=== PATIENT | female | born 1970 | race Hispanic/Latino ===

== ENCOUNTER 2016-10-09 09:23 | Emergency (ER) | payer BC ==
--- NOTE | 2016-10-09 10:24 | ED PDOC ---
Lower Extremity Pain/Injury Time Seen by Provider: 10/09/16 09:32 Chief Complaint (Nursing): Lower Extremity Problem/Injury Chief Complaint (Provider): left ankle pain History Per: Patient, EMS History/Exam Limitations: no limitations Onset/Duration Of Symptoms: Hrs (<1) Current Symptoms Are (Timing): Still Present Severity: Severe Additional Complaint(s): 46yo female states was walking and slipped on ice, injuring left ankle/lower leg. Denies head or neck trauma. Denies upper extremity, chest pain or back pain. Only c/o pain to left ankle with limited active ROM and tingling to foot. Partially immobilized ankle by EMS. Placed onto stretcher, deformity noted, ortho workup initiated with immediate ordering of analgesia for relief of pain. Past Medical History Reviewed: Historical Data, Nursing Documentation, Vital Signs Vital Signs: Last Vital Signs Temp 96.8 F L 10/09/16 09:25 Pulse 76 10/09/16 09:25 Resp 18 10/09/16 09:25 BP 143/89 10/09/16 09:25 Pulse Ox 99 10/09/16 09:25 - Medical History PMH: Asthma Other PMH: breast cancer - Surgical History Other surgeries: mastectomy - Family History Family History: States: Unknown Family Hx - Living Arrangements Living Arrangements: With Family - Social History Drugs: Denies - Home Medications Home Medications: Ambulatory Orders Medication Instructions Recorded Albuterol Sulfate [Proair Hfa] 2 puff IH Q6H PRN 01/23/16 Fluticasone/Salmeterol 250/50 1 puff IH Q12H 10/09/16 [Advair Diskus 250/50] Naproxen [Naprosyn] 500 mg PO BID PRN #14 tablet 10/09/16 oxyCODONE/Acetaminophen [Percocet 1 ea PO Q6 PRN #12 tab 10/09/16 5/325 mg Tab] traMADol [Ultram] 50 mg PO TID PRN #12 tab 10/09/16 - Allergies Allergies/Adverse Reactions: Allergies Allergy/AdvReac Type Severity Reaction Status Date / Time cephalexin monohydrate Allergy RASH Verified 10/09/16 09:29 [From Keflex] codeine Allergy RASH Verified 10/09/16 09:29 Penicillins Allergy RASH Verified 10/09/16 09:29 sulfamethoxazole Allergy SYNCOPE Verified 10/09/16 09:29 [From Bactrim] trimethoprim [From Bactrim] Allergy SYNCOPE Verified 10/09/16 09:29 Review of Systems Constitutional: Negative for: Fever, Chills Cardiovascular: Negative for: Chest Pain, Palpitations Respiratory: Negative for: Cough, Shortness of Breath Gastrointestinal: Negative for: Nausea, Vomiting Genitourinary Female: Negative for: Dysuria, Frequency Musculoskeletal: Positive for: Leg Pain, Foot Pain. Negative for: Neck Pain, Shoulder Pain, Arm Pain, Back Pain, Hand Pain Skin: Negative for: Rash, Lesions, Jaundice Neurological: Negative for: Weakness, Numbness Physical Exam - Reviewed Nursing Documentation Reviewed: Yes Vital Signs Reviewed: Yes - Physical Exam Appears: Positive for: Non-toxic, Uncomfortable (painful distress) Head Exam: Positive for: ATRAUMATIC, NORMAL INSPECTION, NORMOCEPHALIC Skin: Positive for: Normal Color, Warm, DRY Eye Exam: Positive for: Normal appearance, EOMI, PERRL. Negative for: Periorbital swelling ENT: Positive for: Normal ENT Inspection Neck: Positive for: Normal, Painless ROM Cardiovascular/Chest: Positive for: Regular Rate, Rhythm Respiratory: Positive for: Normal Breath Sounds. Negative for: Respiratory Distress Gastrointestinal/Abdominal: Positive for: Normal Exam, Bowel Sounds, Soft Back: Positive for: Normal Inspection Extremity: Positive for: Swelling (L ankle +deformity and tenderness, edema, loss ROM active or passive, normal knee no femur/knee or prox fib tenderness), Other (neg hip or right leg tenderness) Neurologic/Psych: Positive for: Alert, Oriented - Laboratory Results Result Diagrams: 10/09/16 10:20 10/09/16 10:20 - ECG ECG: Positive for: Interpreted By Me ECG Rhythm: Positive for: Sinus Rhythm Interpretation Of Abn EKG: performed pre-sedation Rate: 77 O2 Sat by Pulse Oximetry: 99 Pulse Ox Interpretation: Normal Medical Decision Making Medical Decision Making: "Code ortho" initiated. Ice applied to ankle w stabilization and immobilization. XRays ordered. Basic labwork initiated. NPO. 1000a XRays reveal trimal fracture with dislocation on my initial review. Podiatry consulted. Labs unremarkable States had normal CXR recently via PMD Procedure note: Reduction and procedural sedation Indication: tri-mal fx with fib spiral fracture and displacement Consent obtained for closed reduction under procedural sedation. Risks benefits alternatives explained. Time out performed. ID, site, allergy and NPO confirmed. Using ketamine and propofol, excellent sedation obtained- SPO2 >96% throughout procedure, ETCO2 32-[address] Bennett and podiatry team provided procedure, traction with real time XRay, improved alignment of fracture. Cast applied by podiatry team, toes remain pink and mobile. Tolerated well. MD in room total 35minutes. Monitored ~90min post procedure with +urination, tolerating PO. Pain medicine regimen explained (pt has taken percocet in past without allergy as recently as last year), elevate, hold NSAIDS 48hrs prior to surgery, now scheduled for Friday. Followup Dr Shepherd. Instructions for post deep sedation given. Disposition - Clinical Impression Clinical Impression: Ankle fracture - Patient ED Disposition Is Patient to be Admitted: No Counseled Patient/Family Regarding: Studies Performed, Diagnosis, Need For Followup, Rx Given - Disposition Referrals: Podiatry Clinic [Outside] Disposition: Routine/Home Disposition Time: 15:30 Condition: STABLE Additional Instructions: Non-weight bearing to left ankle/foot. Use crutches. You will need surgery for this injury. Call Dr Shepherd tomorrow for appointment soon to arrange. Take pain medication as directed. Recommend liquid diet tonight after sedation. Have family member stay with you tonight. Prescriptions: Naproxen [Naprosyn] 500 mg PO BID PRN #14 tablet PRN Reason: Pain, Moderate (4-7) oxyCODONE/Acetaminophen [Percocet 5/325 mg Tab] 1 ea PO Q6 PRN #12 tab PRN Reason: Pain, Severe (8-10) traMADol [Ultram] 50 mg PO TID PRN #12 tab PRN Reason: Pain, Moderate (4-7) Instructions: Ankle Fracture (ED), Cast Care (ED), Crutch Instructions (ED), Deep Sedation (ED), RICE Therapy (ED), Non Weight Bearing Activity (ED) - POA Present On Arrival: Falls Or Trauma
[2016-10-09 10:38] LABS: BASO # 0.1 K/uL (0.0-0.2); BASO % 0.8 % (0.0-2.0); EOS # 0.8 K/uL (0.0-0.7); EOS % 5.3 % (0.0-4.0); HEMATOCRIT 38.3 % (34.0-47.0); LYMPH # 2.8 K/uL (1.0-4.3); LYMPH % 19.6 % (20.0-40.0); MEAN CELL VOLUME 97.9 fl (81.0-99.0); MEAN CORPUSCULAR HGB CONC 33.7 g/dL (33.0-37.0); MEAN PLATELET VOLUME 8.6 fl (7.2-11.7); MONO # 0.8 K/uL (0.0-0.8); MONO % 5.3 % (0.0-10.0); NEUT # 9.9 K/uL (1.8-7.0); NRBC % 0.1 % (0.0-0.0); RED CELL DISTRIBUTION WIDTH 11.8 % (11.5-14.5); WHITE BLOOD COUNT 14.4 K/uL (4.8-10.8)
[2016-10-09 10:39] LABS: ALB/GLOB RATIO 1.4 (1.0-2.1); ALKALINE PHOSPHATASE 54 U/L (38-126); ALT/SGPT 21 U/L (9-52); AST/SGOT 17 U/L (14-36); BILIRUBIN,TOTAL 0.6 mg/dl (0.2-1.3); BLOOD UREA NITROGEN 11 mg/dl (7-17); CALCIUM 9.2 mg/dL (8.4-10.2); CARBON DIOXIDE 19 mmol/L (22-30); CHLORIDE 106 mmol/L (98-107); GFR AFRICAN-AMERICAN > 60; GLUCOSE,RANDOM 155 mg/dL (65-105); POTASSIUM 3.8 MMOL/L (3.6-5.0); SODIUM 141 mmol/l (132-148); TOTAL PROTEIN 7.3 G/DL (6.3-8.2)
--- NOTE | 2016-10-09 10:55 | RAD ---
PROCEDURE: Left Foot Radiographs. HISTORY: fall L foot ankle trauma COMPARISON: None. FINDINGS: BONES: No fracture identified in the foot. Medial malleolar and distal fibular diaphyseal fractures are noted. JOINTS: Normal. SOFT TISSUES: Normal. OTHER FINDINGS: None. IMPRESSION: Unremarkable examination of the left foot. Multiple fractures of the left ankle are noted. Please see report of left ankle radiographs.
[2016-10-09] MEDS ORDERED: HYDROmorphone 0.5 mg/0.5 ml ISec ONE (10:56)
--- NOTE | 2016-10-09 10:56 | RAD ---
PROCEDURE: Left Ankle Radiographs. HISTORY: fall L foot ankle trauma COMPARISON: None FINDINGS: BONES: Displaced posterior malleolar fracture. Displaced medial malleolar fracture. Displaced oblique distal fibular fracture above the level of the plafond. Talar dome appears smooth. JOINTS: Widened ankle mortise. SOFT TISSUES: Only mild soft tissue swelling noted. OTHER FINDINGS: None. IMPRESSION: Fracture medial and posterior malleoli with displacement. Oblique displaced distal fibular fracture. Widened ankle mortise.
--- NOTE | 2016-10-09 10:57 | RAD ---
PROCEDURE: Radiographs of the left tibia and fibula. HISTORY: fall L foot ankle trauma COMPARISON: None available. TECHNIQUE: Frontal and lateral views obtained. FINDINGS: BONES: Oblique displaced distal fibular fracture. Medial and posterior malleolar fractures as reported under radiography of left ankle. No additional fracture identified. JOINT SPACES: Unremarkable. OTHER FINDINGS: None. IMPRESSION: Oblique mildly displaced distal fibular fracture. Medial and posterior malleolar fractures. Mildly displaced.
[2016-10-09] MEDS ORDERED: HYDROmorphone 0.5 mg/0.5 ml ISec IVP STA (11:06)
--- NOTE | 2016-10-09 13:01 | CP.PCM.CON ---
History of Present Illness - History of Present Illness History of Present Illness: PODIATRY CONSULT NOTE CC: Left ankle trauma HPI: 46 year old female with left ankle pain and swelling beginning 1 hour ago secondary to a fall on ice today. Pt reports immediately after she was unable to bear weight on the right side. Pt can to the ED department immediately to seek medical treatment. Pt reports pain is a throbbing, localized 7/10 to the affected ankle. Pain is controlled at this time due to NSAID being administered upon arrival to ED. PMH: Asthma PSH: Rigth side mastectomy, Tonsillectomy, Cesarian . ALL: Penicillin, Keflex, Codeine, Bactrim, Sulfa drugs, Morphine Family Hx: Social Hx: Employed, homed. Admits to smoking 3/4 of a pack daily with a 20 year smoking history. Denies alcohol abuse, and illicit drug use. Meds: Advir, Albuterol ROS: Reviewed and all systems negative outside HPI. Review of Systems - Review of Systems All systems: reviewed and no additional remarkable complaints except Past Patient History - Past Social History Drugs: Denies - PULMONARY Hx Asthma: Yes - PSYCHIATRIC Hx Substance Use: No - SURGICAL HISTORY Hx Surgeries: Yes Hx Mastectomy: Yes (RIGHT) - ANESTHESIA Hx Anesthesia: Yes Hx Anesthesia Reactions: No Meds Home Medications: Home Medication List Medication Instructions Recorded Confirmed Type Naproxen [Naprosyn] 500 mg PO BID PRN #14 tablet 10/09/16 Rx oxyCODONE/Acetaminophen [Percocet 1 ea PO Q6 PRN #12 tab 10/09/16 Rx 5/325 mg Tab] traMADol [Ultram] 50 mg PO TID PRN #12 tab 10/09/16 Rx Allergies/Adverse Reactions: Allergies Allergy/AdvReac Type Severity Reaction Status Date / Time cephalexin monohydrate Allergy RASH Verified 10/09/16 09:29 [From Keflex] codeine Allergy RASH Verified 10/09/16 09:29 Penicillins Allergy RASH Verified 10/09/16 09:29 sulfamethoxazole Allergy SYNCOPE Verified 10/09/16 09:29 [From Bactrim] trimethoprim [From Bactrim] Allergy SYNCOPE Verified 10/09/16 09:29 Physical Exam - Constitutional Appears: Well, Non-toxic, No Acute Distress - Extremities Exam Additional comments: Left lower extremity focused. VASC: DP and PT pulses fully palpable, graded 1/4, secondary to non-pitting edema noted extending from supra-ankle level distally into forefoot. No callor noted. Pedal hair growth noted at level of digits. DERM: No ecchymosis, vesicle, open wounds, or macerations noted. Nails are normotrophic and well cared for. NERUO: Protective sensation is grossly intact. MUSCK: Lateral and medial malleoli are tender to palpation. Mild dislocation of left anklel grossly appreciated visually, dislocated laterally and posteriorly. ROM limited due to guarding. No gross dislocation of deformity noted. - Neurological Exam Neurological exam: Alert, Oriented x3 - Psychiatric Exam Psychiatric exam: Anxious, Normal Affect - Skin Skin Exam: Intact, Normal Color, Warm Results - Vital Signs Recent Vital Signs: Last Vital Signs Temp 96.8 F L 10/09/16 09:25 Pulse 76 10/09/16 09:25 Resp 18 10/09/16 09:25 BP 143/89 10/09/16 09:25 Pulse Ox 99 10/09/16 10:31 - Labs Result Diagrams: 10/09/16 10:20 10/09/16 10:20 Labs: Laboratory Results - last 24 hr 10/09/16 10:20 WBC 14.4 H RBC 3.91 Hgb 12.9 Hct 38.3 MCV 97.9 D MCH 33.0 H MCHC 33.7 RDW 11.8 Plt Count 289 MPV 8.6 Neut % (Auto) 69.0 Lymph % (Auto) 19.6 L [place] % (Auto) 5.3 Eos % (Auto) 5.3 H Baso % (Auto) 0.8 Neut # 9.9 H Lymph # 2.8 [place] # 0.8 Eos # 0.8 H Baso # 0.1 Sodium 141 Potassium 3.8 Chloride 106 Carbon Dioxide 19 L Anion Gap 20 BUN 11 Creatinine 0.5 L Est GFR ( Amer) > 60 Est GFR (Non-Af Amer) > 60 Random Glucose 155 H Calcium 9.2 Total Bilirubin 0.6 AST 17 ALT 21 Alkaline Phosphatase 54 Total Protein 7.3 Albumin 4.2 Globulin 3.1 Albumin/Globulin Ratio 1.4 Assessment & Plan - Assessment and Plan (Free Text) Assessment: 46 year old female with 1) Left ankle closed, displaced Tri-malleolar fracture, SER-4 type, secondary to acute fall trauma. . Plan: Patient evaluated and treated. Chart labs and vitals reviewed. Discussed with attending Dr. Shepherd. Discussed with patient etiology and treatment prognosis of conservative and surgical treatment options. Due to patient's extensive fracture patterns surgical intervention recommended, with closed reduction to be performed in the ER. Pt is aware of risks, benefits, and complications. -Consented patient for closed reduction under sedation. Performed closed reduction, adequate reduction of dislocations, re-approximation of length of limb, and bone apposition. Pt tolerated procedure well. Bi-valved cast used for eternal fixation. -Pt to be non-weightbearing w/ use of crutches. -Pt to be scheduled for surgery within 1 week. -Pt to follow-up in office w / Dr. Shepherd. - Date & Time Date: 10/09/16 Time: 01:00
[2016-10-09] MEDS ORDERED: Ketamine 50 mg/ml Inj (10 ml) IV ONE (13:10)
[2016-10-09] MEDS ORDERED: Midazolam 2 MG/2 ML VIAL IV ONE (13:11)
[2016-10-09] MEDS ORDERED: Propofol 10 mg/ml Inj (20 ML) IV ONE ×2 (13:48→14:15)
--- NOTE | 2016-10-09 13:58 | RAD ---
PROCEDURE: Left Ankle Radiographs. HISTORY: closed reduction assesment COMPARISON: None FINDINGS: BONES: Status post close reduction left ankle fracture. The medial malleolus and distal fibular fragment both appear in closer anatomic alignment. . The posterior malleolar fragment appears in anatomic alignment. There is likely greater comminution of the distal tibia than is clearly evident on plain radiography. JOINTS: The tibiotalar articulation appears grossly intact. The talar dome is smooth. SOFT TISSUES: Circumferential soft tissue swelling. OTHER FINDINGS: None. IMPRESSION: Closedreduction oblique distal fibular diaphysis fracture, medial malleolar and posterior malleolar fractures. There is still some displacement of the medial malleolar fragment. There is likely greater comminution of the distal tibia than is evident on plain radiography.
[2016-10-09 14:29] VITALS: RESP 20
--- NOTE | 2016-10-09 15:28 | RAD ---
Left ankle radiographs Comparison: Left ankle radiographs performed earlier the same day. Impression: Status post left ankle close reduction Findings: Images are obtained through a cast which obscures osseous detail. Trimalleolar fracture deformity is re-identified in anatomic alignment, improved since prior study. Soft tissue swelling. Impression: Interval cast. Trimalleolar fracture deformity appears in improved anatomic alignment since prior examination.
[2016-10-09 16:04] VITALS: TEMP 98.6
[2016-10-09 16:06] VITALS: BP 130/70
[2016-10-09 16:10] LABS: PARTIAL THROMBOPLASTIN TIME 24.5 SECONDS (23.3-32.5)
[2016-10-09 18:56] VITALS: O2SAT 99
[2016-10-09 19:00] VITALS: PULSE 77
--- NOTE | 2016-10-10 19:01 | CARD ---
APPROVED REPORT EKG Measurement Heart [id number] ID [id number] <Conclusion> Normal sinus rhythm Possible Left atrial enlargement Borderline ECG
== END 2016-10-09 16:06 | disposition home or self-care (01) ==
LOC: H.ER 09:23
DX: S82.892A Other fracture of left lower leg, initial encounter for closed fracture (principal); W00.0XXA Fall on same level due to ice and snow, initial encounter; Y93.9 Activity, unspecified
CPT/HCPCS: 73590; 73600; 73610; 73630; 80053; 84703; 85025; 85610; 85730; 93005; 96374; 96375; 99283; J1170; J1885; J2250; J2405; J2704

== ENCOUNTER 2017-09-14 20:33 | Emergency (ER) | payer BC ==
[2017-09-14 20:45] VITALS: TEMP 98.3
[2017-09-14] MEDS ORDERED: Albuterol-Ipratrop 3 mg / 0.5 (3 ml) UD INH STA (21:53)
--- NOTE | 2017-09-14 22:07 | ED PDOC ---
HPI: SOB/CHF/COPD Time Seen by Provider: 09/14/17 21:32 Chief Complaint (Nursing): Shortness Of Breath Additional Complaint(s): 47 yo female pmhx asthma brought in by EMS to [facility] ED w/ c/o wheezing and chest tightness since this AM. Pt reports she has URI symptoms ( cough and nasal congestion) for 1.5 weeks. Pt was seen by her PCP/Assistant Clinical Director Dr. Villa on 09/11/17, was given prednisone taper and had negative CXR in the office. Pt reports she took prednisone 40 mg today at 5:45 pm ( first dose) and took 3 nebulizer treatment since this morning. States her chest tightness and shortness of breath were not improving so see came to ED. Denies chest pain, dizziness, fever, chills, GI or symptoms. Denies any hx hospitalization or intubation due to asthma but had ED visit for asthma in the past. Quit smoking 5 yrs ago( smoked 1/2 PPD X 15 yrs). PMD/Assistant Clinical Director: Dr. Villa Past Medical History Vital Signs: Last Vital Signs Temp 98.3 F 09/14/17 20:45 Pulse 98 H 09/14/17 23:24 Resp 18 09/14/17 23:24 BP 119/69 09/14/17 23:24 Pulse Ox 95 09/14/17 23:24 - Medical History PMH: Asthma - Surgical History Other surgeries: Ankle surgery - Family History Family History: States: No Known Family Hx - Social History Ex-Smoker (has not smoked in the last 12 months): Yes Alcohol: None Drugs: Denies - Home Medications Home Medications: Ambulatory Orders Medication Instructions Recorded Albuterol Sulfate [Proair Hfa] 2 puff IH Q6H PRN 01/23/16 Fluticasone/Salmeterol 250/50 1 puff IH Q12H 10/09/16 [Advair Diskus 250/50] Naproxen [Naprosyn] 500 mg PO BID PRN #14 tablet 10/09/16 oxyCODONE/Acetaminophen [Percocet 1 ea PO Q6 PRN #12 tab 10/09/16 5/325 mg Tab] traMADol [Ultram] 50 mg PO TID PRN #12 tab 10/09/16 - Allergies Allergies/Adverse Reactions: Allergies Allergy/AdvReac Type Severity Reaction Status Date / Time cephalexin monohydrate Allergy RASH Verified 10/09/16 09:29 [From Keflex] codeine Allergy RASH Verified 10/09/16 09:29 Penicillins Allergy RASH Verified 10/09/16 09:29 sulfamethoxazole Allergy SYNCOPE Verified 10/09/16 09:29 [From Bactrim] trimethoprim [From Bactrim] Allergy SYNCOPE Verified 10/09/16 09:29 Review of Systems Constitutional: Negative for: Fever, Chills ENT: Negative for: Ear Pain, Throat Pain Cardiovascular: Negative for: Chest Pain, Palpitations Respiratory: Positive for: Cough, Shortness of Breath, Wheezing Gastrointestinal: Negative for: Nausea, Vomiting, Abdominal Pain Genitourinary Female: Negative for: Dysuria Skin: Negative for: Rash Neurological: Negative for: Headache, Dizziness Physical Exam - Physical Exam Appears: Positive for: Non-toxic, In Acute Distress (in mild respiratory distress but able to talk in complete sentences. ) Head Exam: Positive for: ATRAUMATIC, NORMOCEPHALIC Skin: Positive for: Normal Color. Negative for: Diaphoresis ENT: Positive for: Normal ENT Inspection Neck: Positive for: Normal Cardiovascular/Chest: Positive for: Tachycardia (slight tachycardia w/ regular rhythm. ) Respiratory: Positive for: Wheezing (diffuse wheezing B/L lung moore prominent in expiratory phase. ). Negative for: Accessory Muscle Use, Crackles, Rales Gastrointestinal/Abdominal: Positive for: Bowel Sounds, Soft. Negative for: Tenderness Neurologic/Psych: Positive for: Alert, Oriented - Laboratory Results Result Diagrams: 09/14/17 22:23 09/14/17 22:23 - ECG O2 Sat by Pulse Oximetry: 96 - Progress ED Course And Treament: Assessment: 47 yo female pmhx asthma brought in by EMS to [facility] ED with symptoms of asthma exacerbation. Plan: DuoNeb x 3 Pt took 40 mg prednisone at 5:45 pm this evening at home. Peak flow pre/post tx CBC CMP Urine hCG. If symptoms do not improved after 3 treatment, will consider mag sulfate. Case d/w ED attending Dr. Gan. Re-evaluation at 11:00 pm After three dueneb tx, pt feels significantly better. Pt's wheezing has improved but residual B/L expiratory wheezing remains. Pt declines to have any IV medication ( i.e. mag sulfate). Pt is advised to complete prednisone course as prescribed by her Assistant Clinical Director. Pt is medically stable to discharge home. Advised to return to ED if symptoms worsens. Pt verbalizes the understanding and agrees with the plan. Case d/w ED attending Dr. Gan Disposition - Clinical Impression Clinical Impression: Asthma exacerbation - Disposition Disposition Time: 23:36 Condition: IMPROVED Instructions: Asthma in Adults Forms: [facility] (Namibian)
[2017-09-14] MEDS ORDERED: Albuterol-Ipratrop 3 mg / 0.5 (3 ml) UD ONE (22:10)
[2017-09-14 22:26] LABS: BASO # 0.1 K/uL (0.0-0.2); BASO % 0.6 % (0.0-2.0); EOS # 0.6 K/uL (0.0-0.7); EOS % 2.9 % (0.0-4.0); HEMOGLOBIN 13.3 g/dL (12.0-16.0); LYMPH # 1.2 K/uL (1.0-4.3); LYMPH % 6.2 % (20.0-40.0); MEAN CORPUSCULAR HEMOGLOBIN 32.6 pg (27.0-31.0); MEAN CORPUSCULAR HGB CONC 33.3 g/dL (33.0-37.0); MONO # 0.4 K/uL (0.0-0.8); MONO % 1.9 % (0.0-10.0); NEUT # 17.4 K/uL (1.8-7.0); NEUT % 88.4 % (50.0-75.0); NRBC % 0.1 % (0.0-0.0); PLATELET COUNT 280 K/uL (130-400); RBC 4.08 Mil/uL (3.80-5.20); RED CELL DISTRIBUTION WIDTH 11.8 % (11.5-14.5); WHITE BLOOD COUNT 19.7 K/uL (4.8-10.8)
[2017-09-14 22:36] LABS: ALB/GLOB RATIO 1.3 (1.0-2.1); ALBUMIN 4.2 g/dL (3.5-5.0); ALT/SGPT 29 U/L (9-52); AST/SGOT 28 U/L (14-36); BLOOD UREA NITROGEN 13 mg/dl (7-17); CALCIUM 9.3 mg/dL (8.4-10.2)
[2017-09-14 23:17] LABS: GFR AFRICAN-AMERICAN > 60; GFR NON-AFRICAN AMERICAN > 60
[2017-09-14 23:26] VITALS: BP 119/69; PULSE 98; RESP 18
[2017-09-14 23:36] VITALS: O2SAT 96
[2017-09-15 01:24] LABS: EOSINOPHIL 4 % (0-7); LYMPHOCYTE 6 % (20-50); NEUTROPHIL 90 % (42-75); PLATELET ESTIMATE NORMAL (NORMAL); TOTAL CELLS COUNTED 100
[2017-09-15 01:25] LABS: TEARDROP CELLS SLIGHT
[2017-09-15 04:04] LABS: MONOCYTE 0 % (0-10)
== END 2017-09-14 23:31 | disposition home or self-care (01) ==
LOC: H.ER 20:33
DX: J45.901 Unspecified asthma with (acute) exacerbation (principal); Z88.0 Allergy status to penicillin

== ENCOUNTER 2017-11-06 10:04 | Emergency (ER) | payer BC ==
[2017-11-06 10:11] VITALS: BMI 20.7
[2017-11-06 10:12] VITALS: TEMP 97.6
--- NOTE | 2017-11-06 10:30 | ED PDOC ---
HPI: Chest Pain Time Seen by Provider: 11/06/17 10:10 History Per: Patient Onset/Duration Of Symptoms: Hrs (2) Current Symptoms Are (Timing): Still Present Severity: Moderate Pain Scale Rating Of: 3 Quality: Sharp Associated Symptoms: Diaphoresis Modifying Factors: None Exacerbating Factors: None Alleviating Factors: None Additional Complaint(s): Sharp left sided chest pain radiating to neck and left shoulder since this AM. Denies SOB. No weakness or parasthesias. Denies cough or fever. No leg or calf pain Past Medical History Vital Signs: Last Vital Signs Temp 97.6 F 11/06/17 10:11 Pulse 76 11/06/17 10:54 Resp 16 11/06/17 10:11 BP 153/88 H 11/06/17 10:11 Pulse Ox 99 11/06/17 10:30 - Medical History PMH: Asthma - Surgical History Other surgeries: Left ankle surgery. - Family History Family History: States: Unknown Family Hx - Home Medications Home Medications: Ambulatory Orders Medication Instructions Recorded Albuterol Sulfate [Proair Hfa] 2 puff IH Q6H PRN 01/23/16 Fluticasone/Salmeterol 250/50 1 puff IH Q12H 10/09/16 [Advair Diskus 250/50] Naproxen [Naprosyn] 500 mg PO BID PRN #14 tablet 10/09/16 oxyCODONE/Acetaminophen [Percocet 1 ea PO Q6 PRN #12 tab 10/09/16 5/325 mg Tab] traMADol [Ultram] 50 mg PO TID PRN #12 tab 10/09/16 - Allergies Allergies/Adverse Reactions: Allergies Allergy/AdvReac Type Severity Reaction Status Date / Time cephalexin monohydrate Allergy RASH Verified 11/06/17 10:45 [From Keflex] codeine Allergy RASH Verified 11/06/17 10:45 Penicillins Allergy RASH Verified 11/06/17 10:45 sulfamethoxazole Allergy SYNCOPE Verified 11/06/17 10:45 [From Bactrim] trimethoprim [From Bactrim] Allergy SYNCOPE Verified 11/06/17 10:45 Review of Systems ROS Statement: Except As Marked, All Systems Reviewed And Found Negative Cardiovascular: Positive for: Chest Pain Physical Exam - Reviewed Nursing Documentation Reviewed: Yes Vital Signs Reviewed: Yes - Physical Exam Appears: Positive for: Non-toxic, No Acute Distress Head Exam: Positive for: ATRAUMATIC, NORMAL INSPECTION, NORMOCEPHALIC Skin: Positive for: Normal Color, Warm, DRY Eye Exam: Positive for: EOMI, Normal appearance, PERRL ENT: Positive for: Normal ENT Inspection Neck: Positive for: Normal, Painless ROM Cardiovascular/Chest: Positive for: Regular Rate, Rhythm Respiratory: Positive for: CNT, Normal Breath Sounds Gastrointestinal/Abdominal: Positive for: Normal Exam, Soft Back: Positive for: Normal Inspection Extremity: Positive for: Normal ROM. Negative for: Calf Tenderness, Swelling Neurologic/Psych: Positive for: Alert, Oriented - Laboratory Results Result Diagrams: 11/06/17 11:00 11/06/17 11:00 - ECG O2 Sat by Pulse Oximetry: 99 Medical Decision Making Medical Decision Making: Pt declines chest xray due to fear of excessive radiation. Advised pt that she is at risk for PE due to h/o Carcinoma in situ of breast. Pt advised to have CTA chest to r/o PE despite nl d-dimer. Aware of risks including pulmonary infarct an . Advised to return immediately to ED if chest pain or SOB recurrs. Advised f/u PMD IVONNE today if possible. Disposition - Clinical Impression Clinical Impression: Chest pain - Patient ED Disposition Is Patient to be Admitted: No Counseled Patient/Family Regarding: Studies Performed, Diagnosis, Need For Followup - Disposition Referrals: [facility] [Outside] Disposition: Routine/Home Disposition Time: 12:27 Condition: FAIR Instructions: Chest Pain
[2017-11-06 11:04] LABS: BASO # 0.1 K/uL (0.0-0.2); EOS # 0.9 K/uL (0.0-0.7); HEMOGLOBIN 13.8 g/dL (12.0-16.0); LYMPH # 2.1 K/uL (1.0-4.3); MEAN CELL VOLUME 97.4 fl (81.0-99.0); MEAN CORPUSCULAR HGB CONC 33.9 g/dL (33.0-37.0); MEAN PLATELET VOLUME 7.8 fl (7.2-11.7); MONO # 0.6 K/uL (0.0-0.8); MONO % 5.8 % (0.0-10.0); NEUT % 62.2 % (50.0-75.0); NRBC % 0.1 % (0.0-0.0); RBC 4.2 Mil/uL (3.80-5.20); RED CELL DISTRIBUTION WIDTH 12.3 % (11.5-14.5); WHITE BLOOD COUNT 9.6 K/uL (4.8-10.8)
[2017-11-06 11:14] LABS: ALB/GLOB RATIO 1.4 (1.0-2.1); ALBUMIN 4.4 g/dL (3.5-5.0); ALT/SGPT 29 U/L (9-52); AST/SGOT 19 U/L (14-36); BLOOD UREA NITROGEN 10 mg/dl (7-17); CALCIUM 9.9 mg/dL (8.4-10.2); GFR AFRICAN-AMERICAN > 60; GFR NON-AFRICAN AMERICAN > 60
[2017-11-06 12:37] VITALS: BP 128/78; PULSE 73; RESP 14; O2SAT 100
--- NOTE | 2017-11-06 15:09 | CARD ---
APPROVED REPORT EKG Measurement Heart [id number] <Conclusion> Normal sinus rhythm Normal ECG
== END 2017-11-06 12:37 | disposition home or self-care (01) ==
LOC: H.ER 10:04
DX: R07.89 Other chest pain (principal); J45.909 Unspecified asthma, uncomplicated; Z88.0 Allergy status to penicillin